=== PATIENT | female | born 1975 ===

== ENCOUNTER 2023-11-22 10:36 | Day surgery (SDC) | payer OTHER ==
[2023-11-20 09:19] LABS: PH,URINE 5.5 (5.0-8.0); URINE APPEARANCE Clear; URINE BILIRRUBIN Negative (NEGATIVE); URINE BLOOD Large; URINE COLOR Yellow; URINE GLUCOSE Negative (NEGATIVE); URINE KETONE Negative (NEGATIVE); URINE LEUKOCYTE Small; URINE NITRATE Negative; URINE PROTEIN Trace (NEGATIVE); URINE UROBILINOGEN 0.2 E.U./dl
[2023-11-20 09:19] LABS: HEMATOCRIT 35.5 % (36.0-45.00); HEMOGLOBIN 11.3 g/dL (12.0-15.00); MEAN CORPUSCULAR HEMOGLOBIN 24.2 pg (27.00-32.0); MEAN CORPUSCULAR HGB CONC 31.8 g/dl (32.0-36.0); PLATELET COUNT 346 K/uL (150-450); RED BLOOD COUNT 4.67 M/uL (4.00-6.00); RED CELL DISTRIBUTION WIDTH 17.2 % (11.5-14.5)
[2023-11-20 09:24] LABS: URINE BACTERIA 64.2 uL (0.0-1933); URINE EPITHELIAL CELLS 13.9 uL (0.0-38.8); URINE RBC 4730.4 uL (0.0-20.8); URINE WBC 36.6 uL (0.0-23.2)
[2023-11-20 10:02] LABS: INR 0.98; PARTIAL THROMBOPLASTIN TIME 23.2 SECONDS (22.0-34.0); PROTHROMBIN TIME 10.7 SECONDS (9.0-11.5)
[2023-11-20 10:05] LABS: CALCIUM 9.2 mg/dL (8.5-10.1); CREATININE SERUM 0.91 mg/dL (0.55-1.02); GFR 66.55; POTASSIUM 4.19 mEq/L (3.5-5.1)
[2023-11-22] MEDS ORDERED: CHLORHEXIDINE GLUCONATE 120 ML BOTTLE TOP ONE ×2 (16:15→17:45)
[2023-11-22] MEDS ORDERED: GENTAMICIN SULFATE 40 MG/ML VIAL ONE (16:16)
[2023-11-22] MEDS ORDERED: IOVERSOL 320 MG/ML - 50 ML VIAL IV ONE (17:10)
[2023-11-22] MEDS ORDERED: GENTAMICIN SULFATE 40 MG/ML VIAL IV ONE (17:45)
[2023-11-22] MEDS ORDERED: TAMSULOSIN HCL 0.4 MG CAP PO ONE ×2 (18:45→23:27)
[2023-11-22] MEDS ORDERED: OxyCODONE HCL/APAP UD (PERCOCET) PO PRN (18:45)
[2023-11-22] MEDS ORDERED: PHENAZOPYRIDINE HCL 100 MG TABLET PO ONE ×2 (18:45→23:27)
== END 2023-11-23 01:40 | disposition home or self-care (01) ==
LOC: CIR.AMB 10:36
PROVIDERS: ATTEND Urology
DX: N20.0 Calculus of kidney (principal); Z88.2 Allergy status to sulfonamides